=== PATIENT | male | born 2000 | race Asian ===

== ENCOUNTER 2018-09-23 19:49 | Emergency (ER) | payer OTHER ==
--- NOTE | 2018-09-23 22:36 | RAD ---
EXAM: CT Head Without Intravenous Contrast CLINICAL HISTORY: 17 years old, male; Pain; Headache; Headache not specified TECHNIQUE: Axial computed tomography images of the head/brain without intravenous contrast. All CT scans at this facility use at least one of these dose optimization techniques: automated exposure control; mA and/or kV adjustment per patient size (includes targeted exams where dose is matched to clinical indication); or iterative reconstruction. COMPARISON: No relevant prior studies available. FINDINGS: Brain: No intracranial hemorrhage or extra-axial fluid collection. No evidence of mass effect or midline shift. Murphy-white matter differentiation is normal. Ventricles: Ventricles and sulci are normal. Bones/joints: No acute osseus lesions or fractures. Soft tissues: Unremarkable. Sinuses: Unremarkable as visualized. No acute sinusitis. Mastoid air cells: Mastoid air cells are clear. IMPRESSION: No acute intracranial pathology. To contact [facility] with a general question: [facility] - [phone] For direct physician to physician contact: Physician Hotline - [phone] [facility] ([facility] ID #[id number])
[2018-09-23] MEDS ORDERED: Ibuprofen TAB* 600 MG PO ONE (22:55)
--- NOTE | 2018-09-23 22:55 | ED ---
Headache - HPI Summary HPI Summary: 17 male presents with sudden onset of headache during exercising. He states he just started exercising and he developed a headache to posterior aspect of his head. He states he felt like it popped. He states he developed some numbness and tingling in his arms 5 mins later that resolved. He states the headache was a 9 out of 10. Denies any history of headaches. States the headache has persisted but is presently getting better. Now been 3 hours since the headache started. He admits some dizziness that has resolved. no change in vision. No change in hearing. No neck pain. No chest pain or shortness of breath. Has no medical conditions. - History Of Current Complaint Chief Complaint: EDHeadache Stated Complaint: HEADACHE Time Seen by Provider: 09/23/18 21:35 - Allergies/Home Medications Allergies/Adverse Reactions: Allergies Allergy/AdvReac Type Severity Reaction Status Date / Time No Known Allergies Allergy Verified 09/23/18 19:57 Home Medications: Home Medications predniSONE TAB* [Deltasone 10 MG TAB*] 10 mg PO DAILY 09/23/18 [History Confirmed 09/23/18] PMH/Surg Hx/FS Hx/Imm Hx Endocrine/Hematology History: Denies: Hx Anticoagulant Therapy Respiratory History: Denies: Hx Asthma Infectious Disease History: No Infectious Disease History: Denies: Traveled Outside the [place] in Last 30 Days - Family History Known Family History: Positive: Other - no fam hx migraines - Social History Alcohol Use: None Substance Use Type: Reports: None Smoking Status (MU): Never Smoked Tobacco Review of Systems Negative: Fever Negative: Chest Pain Negative: Shortness Of Breath Positive: Headache All Other Systems Reviewed And Are Negative: Yes Physical Exam Triage Information Reviewed: Yes Vital Signs On Initial Exam: Initial Vitals Temp Pulse Resp BP Pulse Ox 97.9 F 65 16 128/83 99 09/23/18 19:54 09/23/18 19:54 09/23/18 19:54 09/23/18 19:54 09/23/18 19:54 Vital Signs Reviewed: Yes Appearance: Positive: Well-Appearing Skin: Positive: Warm, Dry Head/Face: Positive: Normal Head/Face Inspection Eyes: Positive: Normal, EOMI, PRIYANKA, Conjunctiva Clear ENT: Positive: Normal ENT inspection, Pharynx normal, TMs normal Respiratory/Lung Sounds: Positive: Clear to Auscultation, Breath Sounds Present Cardiovascular: Positive: Normal, RRR Musculoskeletal: Positive: Normal Neurological: Positive: Sensory/Motor Intact, Alert, Oriented to Person Place, Time, CN Intact II-III Psychiatric: Positive: Normal Diagnostics - Vital Signs Vital Signs Temp Pulse Resp BP Pulse Ox 09/23/18 19:54 97.9 F 65 16 128/83 99 - Laboratory Lab Statement: Any lab studies that have been ordered have been reviewed, and results considered in the medical decision making process. - CT brain CT Interpretation Completed By: Radiologist Summary of CT Findings: no acute process Headache Course/Dx - Course Course Of Treatment: 17 male presents with sudden onset of headache during exercising. He states he just started exercising and he developed a headache to posterior aspect of his head. He states he felt like it popped. He states he developed some numbness and tingling in his arms 5 mins later that resolved. He states the headache was a 9 out of 10. Denies any history of headaches. States the headache has persisted but is presently getting better. Now been 3 hours since the headache started. He admits some dizziness that has resolved. no change in vision. No change in hearing. No neck pain. No chest pain or shortness of breath. Has no medical conditions. On exam has tenderness over the base of skull. Normal neuro exam. with sudden onset of a new headache will get a CT. The CT is normal. Due to headache starting [address] at this time is very sensitive. Told could be a stress or tension type headache. Warned if anything changes to return. We'll treat with ibuprofen. Patient understands agrees with plan. - Diagnoses Differential Diagnosis/HQI/PQRI: Migraine, Subarachnoid Hemorrhage, Tension Headache Provider Diagnoses: Headache Discharge - Sign-Out/Discharge Documenting (check all that apply): Patient Departure - Discharge Plan Condition: Good Disposition: HOME Patient Education Materials: Acute Headache (ED) Referrals: No Primary Care Phys,NOPCP [Primary Care Provider] - Additional Instructions: follow up with mary if no improvement take tyenlol or ibuprofen every 6 hours as needed for pain Return to ED if develop any new or worsening symptoms - Billing Disposition and Condition Condition: GOOD Disposition: Home
[2018-09-23 23:08] VITALS: BP 124/83
== END 2018-09-23 23:04 | disposition home or self-care (01) ==
LOC: EDBD → ED 19:49
DX: R51 Headache (principal)
CPT/HCPCS: 70450; 99282; A9270-GY